=== PATIENT | female | born 1970 ===

== ENCOUNTER → 2022-03-30 14:11 | Outpatient (CLI) | payer MEDICARE, MEDICAID, SELFPAY ==
--- NOTE | ~2022-03-30 | XR_ITS ---
XR lumbar spine 6V w bending DATE: 03/30/2022 14:54 INDICATION: Lumbar radiculopathy TECHNIQUE: Standing AP, bilateral oblique, lateral, coned lateral lumbosacral and flexion and extensi on lateral views COMPARISON: None FINDINGS: Status post L5 laminectomy and posterior and interbody surgical fusion at L5-S1. There is severe degenerative disc disease at L1-2, mild degenerative disc disease at L2-3 and L3-4 an d moderately severe degenerative disc disease at L4-5. No fracture, spondylolysis or spondylolisthesis is evident. The lumbar pedicles are intact. There is mild levoscoliosis of the thoracic spine and slight dextroscoliosis of the lumbar spine. The sacroiliac joints are intact. Surgical clips, right upper quadrant of abdomen, likely due to cholecystectomy. IMPRESSION: Status post L5 laminectomy and posterior and interbody surgical fusion at L5-S1 Multilevel degenerative disc disease Reviewed, dictated and finalized at location L. ECT MANAGEMENT PROFESSOR IMPRESSION: Status post L5 laminectomy and posterior and interbody surgical fus ion at L5-S1 Multilevel degenerative disc disease
== END ==
PROVIDERS: Visit Provider Nurse Practitioner Family
DX: M54.16 Radiculopathy, lumbar region (principal); Z98.1 Arthrodesis status; M51.36 Other intervertebral disc degeneration, lumbar region
CPT/HCPCS: 72114

== ENCOUNTER → 2022-04-16 11:29 | Outpatient (CLI) | payer MEDICARE, MEDICAID, SELFPAY ==
--- NOTE | ~2022-04-16 | CT_ITS ---
Noncontrast CT scan of the lumbar spine CLINICAL HISTORY: Lumbar radiculopathy TECHNIQUE: Axial noncontrast imaging of the lumbar spine was performed. Sagittal and coronal reformat jazmin images were constructed. Dose reduction technique was used on this scan by utilizing automated ex posure control and iterative reconstruction technique. FINDINGS: No acute fracture or sublocation identified. There is posterior fusion from L5 to S1, with bilateral rods and transpedicular screws present. This fusion device is present across the L5-S1 disc space. L5 laminectomy present. At L1-L2, there is mild to moderate degenerative disc narrowing. No disc bulge or herniation seen. No spinal canal stenosis or neural foraminal narrowing. At L2-L3, there is no definite disc bulge or herniation. There is minimal facet arthropathy. No spina l canal stenosis or neural foraminal narrowing. At L3-L4, there is no disc bulge or herniation. There is mild facet arthropathy. No spinal canal sten osis or definite neural foraminal narrowing. At L4-L5, there is disc bulge and ligamentum flavum hypertrophy. There is probable moderate thecal sa c compression at this level. There is moderate bilateral neural foraminal narrowing. At L5-S1, spinal canal somewhat poorly evaluated due to streak artifact. No definite canal stenosis. No definite neural foraminal narrowing. Paravertebral soft tissues are unremarkable. IMPRESSION: Postsurgical changes at the L5-S1 level, as detailed above. Probable multifactorial moderate thecal sac compression L4-L5, with moderate bilateral neural foramin al narrowing. Reviewed, dictated and finalized at [facility]. OR LINUX ADMINISTRATOR IMPRESSION: Postsurgical changes at the L5-S1 level, as detailed above. Probable multifactorial moderate thecal sac compression L4-L5, with moderate bi lateral neural foraminal narrowing.
== END ==
PROVIDERS: Visit Provider Nurse Practitioner Family
DX: M54.16 Radiculopathy, lumbar region (principal)
CPT/HCPCS: 72131